=== PATIENT | female | born 1935 | race African-American/Black ===

== ENCOUNTER 2022-05-26 07:19 | Emergency (ER) | payer OTHER ==
[2022-05-26 08:06] VITALS: TEMP 98.1; BMI 21.4
[2022-05-26 20:23] VITALS: BP 149/78; PULSE 84; RESP 18
== END 2022-05-26 20:23 ==
LOC: JER 07:19
DX: M25.551 Pain in right hip (principal); W05.0XXA Fall from non-moving wheelchair, initial encounter
CPT/HCPCS: 70450-TC; 72125-TC; 72170-TC-FY; 73502-TC-RT-FY; 93005; 93010; 99284-25

== ENCOUNTER 2022-08-13 01:59 | Inpatient (IN) | payer OTHER ==
[2022-08-13] MEDS ORDERED: SODIUM CHLORIDE 0.9% 500 ML INFUS.BAG IV ONE (02:08)
[2022-08-13] MEDS ORDERED: ONDANSETRON 4 MG/2 ML VIAL IVPUSH ONE (02:08)
[2022-08-13] MEDS ORDERED: ONDANSETRON 4 MG/2 ML VIAL ONE (02:49)
[2022-08-13] MEDS ORDERED: morphine CARPU-JECT 4 MG/1 ML DISP.SYRIN IVPUSH ONE (02:55)
[2022-08-13 03:16] LABS: BASO % 0.1 % (0-2.0); EOS % 0.1 % (0-4.5); HEMATOCRIT 37.5 % (32.4-45.2); HEMOGLOBIN 12.2 GM/dL (10.7-15.3); LYMPH % 2.1 % (8-40); MCH 30.5 pg (25.7-33.7); MCHC 32.6 g/dl (32.0-36.0); MEAN CELL VOLUME 93.6 fl (80-96); MEAN PLT VOLUME 8.5 fl (7.5-11.1); MONO % 17.7 % (3.8-10.2); PLATELET COUNT 282 10^3/uL (134-434); RBC 4.01 M/mm3 (3.60-5.2); RDW 15.1 % (11.6-15.6); WHITE BLOOD COUNT 16.9 K/mm3 (4.0-10.0)
[2022-08-13 03:37] LABS: BLOOD UREA NITROGEN 31.4 mg/dL (7-18)
[2022-08-13 03:38] LABS: ALBUMIN 3.5 g/dl (3.4-5.0); MAGNESIUM 2.4 mg/dL (1.8-2.4)
[2022-08-13 03:41] LABS: CREATININE 1.1 mg/dL (0.55-1.3); PHOSPHOROUS 3.2 mg/dL (2.5-4.9)
[2022-08-13 03:42] LABS: BILIRUBIN,TOTAL 0.2 mg/dL (0.2-1); TOT PROT 8.3 g/dl (6.4-8.2)
[2022-08-13 04:17] LABS: EPI CELLS 12 /uL (0-25.1); HYALINE CASTS 1 /uL (0-3.1); URINE APPEARANCE CLEAR; URINE BACTERIA 496 /uL (0-1359); URINE BILIRUBIN NEGATIVE (NEGATIVE); URINE COLOR YELLOW; URINE GLUCOSE (UA) NEGATIVE (NEGATIVE); URINE KETONE NEGATIVE (NEGATIVE); URINE LEUK ESTERASE 1+ (NEGATIVE); URINE NITRITE NEGATIVE (NEGATIVE); URINE PROTEIN NEGATIVE (NEGATIVE); URINE UROBILINOGEN 0.2 mg/dL (0.2-1.0); URINE WBC 30 /uL (0-25.8)
[2022-08-13] MEDS ORDERED: PIPERACILLIN/TAZOB 3.375 GM 3.375 GM in DEXTROSE 5%-WATER - 50 ML IVPB ONE (07:03)
[2022-08-13] MEDS ORDERED: PIPERACILLIN/TAZOB 3.375 GM 3.375 GM/50 ML BAG IVPB ONE (07:23)
[2022-08-13 08:38] LABS: URINE RBC 36.9 /uL (0-23.9)
[2022-08-13] MEDS ORDERED: ACETAMINOPHEN 325 MG TABLET (FP) PO PRN (10:12)
[2022-08-13] MEDS ORDERED: HEPARIN NA (PORCINE) 5,000 UNITS/ML 1ML VIAL ONE (14:44)
[2022-08-13 15:31] VITALS: RESP 18
[2022-08-13] MEDS: HEPARIN NA (PORCINE) 5,000 UNITS/ML 1ML VIAL SQ SCH ×2 (15:35→21:24)
[2022-08-13 18:02] VITALS: BMI 21.0
[2022-08-14] MEDS: HEPARIN NA (PORCINE) 5,000 UNITS/ML 1ML VIAL SQ SCH ×3 (06:51→21:51)
[2022-08-14] MEDS: CEFTRIAXONE 1 GM in DEXTROSE 5%-WATER - 50 ML IVPB SCH (09:33)
[2022-08-14] MEDS: QUEtiapine FUMARATE 25 MG TABLET PO SCH (11:19)
[2022-08-14] MEDS: metoPROLOL SUCCINATE 25 MG TAB.SR.24H (FP) PO SCH (11:19)
[2022-08-14] MEDS: LOSARTAN POTASSIUM 50 MG TABLET PO SCH (11:19)
[2022-08-15] MEDS: HEPARIN NA (PORCINE) 5,000 UNITS/ML 1ML VIAL SQ SCH ×3 (06:25→21:46)
[2022-08-15] MEDS: CEFTRIAXONE 1 GM in DEXTROSE 5%-WATER - 50 ML IVPB SCH (09:09)
[2022-08-15] MEDS: QUEtiapine FUMARATE 25 MG TABLET PO SCH (09:13)
[2022-08-15] MEDS: metoPROLOL SUCCINATE 25 MG TAB.SR.24H (FP) PO SCH (09:13)
[2022-08-15] MEDS: LOSARTAN POTASSIUM 50 MG TABLET PO SCH (09:13)
[2022-08-15] MEDS: amLODIPine BESYLATE 5 MG TABLET (FP) PO SCH (15:37)
[2022-08-16] MEDS: HEPARIN NA (PORCINE) 5,000 UNITS/ML 1ML VIAL SQ SCH (05:18)
[2022-08-16] MEDS: LOSARTAN POTASSIUM 50 MG TABLET PO SCH (09:25)
[2022-08-16] MEDS: QUEtiapine FUMARATE 25 MG TABLET PO SCH (09:25)
[2022-08-16] MEDS: amLODIPine BESYLATE 5 MG TABLET (FP) PO SCH (09:25)
[2022-08-16] MEDS: metoPROLOL SUCCINATE 25 MG TAB.SR.24H (FP) PO SCH (09:25)
[2022-08-16 10:31] VITALS: BP 135/77; PULSE 79; TEMP 98
== END 2022-08-16 10:41 | disposition home or self-care (01) | DRG 690 ==
LOC: JER 01:59 → JERBED 07:44 → J6S 15:55
PROVIDERS: ADMIT Internal Medicine; ATTEND Internal Medicine
DX: N39.0 Urinary tract infection, site not specified (principal); R11.2 Nausea with vomiting, unspecified; I10 Essential (primary) hypertension; R91.1 Solitary pulmonary nodule; R09.02 Hypoxemia
CPT/HCPCS: 36415; 71045-TC-FY; 71250-TC; 80053; 81003; 83735; 84100; 84484; 85025; 87086; 87186; 93005; 93010; 99285-25; C9803-CS; J1644; U0003; U0005